=== PATIENT | female | born 1955 | race Caucasian/White ===

== ENCOUNTER 2021-06-01 16:46 | Emergency (ER) | payer OTHER ==
[~2021-06-01] VITALS: Ht 160 cm; Wt 83.9 kg
[2021-06-01] MEDS ORDERED: TIROSINT125 MCG (17:28)
[2021-06-01] MEDS ORDERED: ACID REDUCER20 M1 (17:29)
== END 2021-06-01 22:03 | disposition home or self-care (01) ==
LOC: ER 16:46
DX: S70.01XA Contusion of right hip, initial encounter (principal); W18.09XA Striking against other object with subsequent fall, initial encounter; Y93.89 Activity, other specified; Y92.488 Other paved roadways as the place of occurrence of the external cause; Y99.8 Other external cause status